=== PATIENT | male | born 1975 | race Caucasian/White ===

== ENCOUNTER 2022-05-04 06:35 | Emergency (ER) | payer SELFPAY ==
--- NOTE | ~2022-05-04 | XR_ITS ---
XR hand LT 2V DATE: 05/04/2022 07:14 INDICATION: Animal bite TECHNIQUE: AP and lateral views COMPARISON: None FINDINGS: There is subcutaneous emphysema of the mid and ulnar aspects of the dorsum of the hand and ulnar aspect of the wrist. Best demonstrated on the lateral view are at least several small apparent bone fracture fragments, li ambrocio from the base of the fifth metacarpal bone or distal hamate. CT examination would be more defini tive. No other fracture or dislocation is evident. No periosteal reaction or bone destruction is noted. IMPRESSION: Prominent subcutaneous emphysema of the wrist and hand Small fracture fragments are detected at the medial carpal-metacarpal area; CT would be helpful for m ore definitive evaluation of the fractures if clinically appropriate Reviewed, dictated and finalized at location A. [facility] IMPRESSION: Prominent subcutaneous emphysema of the wrist and hand Small fracture fragments are detected at the medial carpal-metacarpal area; CT would be helpful for more definitive evaluation of the fractures if clinically appropriate
[2022-05-04 06:42] VITALS: BP 175/113; PULSE 67; RESP 20; TEMP 36.1; O2SAT 99
[2022-05-04] MEDS: fentaNYL CITRATE INJ (*CRX) 100 MCG/2 ML VIAL 50 MCG IM (07:18)
[2022-05-04] MEDS: LIDO 1%/EPINEPHRINE 1:100,000 20 ML VIAL INFILTRATE (07:19)
--- NOTE | 2022-05-04 08:00 | ED.ANIMALBIT ---
HPI - Animal Bite General Chief Complaint: Animal Bite Stated Complaint: Hand Injury Time Seen by Provider: 05/04/22 07:24 History of Present Illness HPI narrative: Pt was getting to his truck early this morning in the dark and heard growl and was attacked by stray animal. Pt not sure what it was because he couldn't see it in the dark. Pt says it latched onto his hand and he had a hard time getting it to let go. Pt has not had a recent tetanus shot. Pt does not have a PCP are does not routinely see doctors. Pt sustained wounds to left hand. Related Data Allergies Allergy/AdvReac Type Severity Reaction Status Date / Time NALDACON Allergy Mild Unknown Uncoded 05/04/22 06:49 Review of Systems Review of Systems: All systems reviewed & are unremarkable except as noted in HPI and below Exam Const: General: healthy appearing Nutritional Appearance: well nourished Orientation/consciousness: patient oriented x3 Limitations: no limitations Resp: Effort & Inspection: normal respiratory effort Cardio: Rate: regular rate Rhythm: regular rhythm GI: GI Palp: Yes Soft to palpation Skin: General skin exam: normal color Wounds: wounds noted Neuro: General: patient oriented x3, moves all extremities, no meningeal signs and no focal motor deficits Extrem: Other: large gaping 5 cm laceration to proximal dorsal wrist, several small puncure wounds to palm and a few to dorsum of hand. able to flex and extend fingers and wrist, moderate swelling to hand noted Psych: Mental Status: mental status grossly normal Affect: normal affect Attitude: cooperative Course Vital Signs Vital signs: Vital Signs Temperature 97 F L 05/04/22 06:42 Pulse Rate 05/04/22 06:42 Respiratory Rate 20 05/04/22 06:42 Blood Pressure 175/113 H 05/04/22 06:42 Pulse Oximetry 99 05/04/22 06:42 Oxygen Delivery Room Air 05/04/22 06:42 Temperature 97 F L 05/04/22 06:42 Pulse Rate 67 05/04/22 06:42 Respiratory Rate 20 05/04/22 06:42 Blood Pressure 175/113 H 05/04/22 06:42 Pulse Oximetry 99 05/04/22 06:42 Oxygen Delivery Room Air 05/04/22 06:42 Procedures Laceration Laceration 1: Date: 05/04/22 Site: hand Side (If applicable): left Size (cm): 5 Description: linear Depth: simple, single layer Local Anesthetic: lidocaine 1% and with epi Amount of anesthesia used (mL): 6 Pre-repair: wound explored, irrigated, deep structures intact and other (wound explored no tendon injury or FB noted, looselu approximated) ====== Skin Level ====== Skin layer closed with: nylon Size (cm): 4-0 Number of sutures: 4 Technique: simple, interrupted ====== Subcutaneous Layer ====== ====== Muscle Layer ====== ====== Tendon Layer ====== MDM - Animal Bite MDM Narrative Medical decision making narrative: x rays showed small fracture fragments. large wound closed loosely. dixussed with Dr Iglesias, recommended IV Unasyn and will see in follow up. Discussed with pharmacy regarding rabies prophylaxis. recommended prophyklaxix, will give IM IG here and vaccine and then prescribe days 3,7 and 14 outpatient Discussed need for close follow up and risk for infection. Pt understands. Pt needs to get to work. Differential Diagnosis Differential diagnosis: Likely bite by animal and rabies contact Discharge Plan Discharge Clinical Impression: Bite by animal Patient Disposition: Home, Self-Care Condition: Improved Instructions: Antibiotic Form, Animal Bite (ED), Laceration (ED) Additional Instructions: return to outpatient for rabies vaccine shots day 3, 7 and 14 Prescriptions: New amoxicillin-pot clavulanate 875-125 mg tablet 1 tablet PO Q12H Qty: 20 0RF Follow-up/Referrals: Jimmie Iglesias MD [Physician] - UNKNOWN,DOCTOR [Primary Care Provider] -
[2022-05-04] MEDS: TETANUS,DIPHTHERIA,AC PERTUSSIS ADULT 0.5 ML (ADACEL) IM (08:03)
[2022-05-04] MEDS: AMPICILLIN SULB 3 GM/NS 100 ML 3 GM/100 ML VIAL IVPB (08:06)
[2022-05-04] MEDS: ONDANSETRON INJ 4 MG/2 ML VIAL IV PUSH (08:46)
[2022-05-04] MEDS: fentaNYL CITRATE INJ (*CRX) 100 MCG/2 ML VIAL 50 MCG IV PUSH (08:46)
[2022-05-04] MEDS: RABIES IMMUNE GLOBULIN/PF 1,500 UNITS/5 ML VIAL 2400 UNITS IM (08:55)
[2022-05-04] MEDS: RABIES VACCINE (RABAVERT) 2.5 UNITS VIAL IM (09:04)
[2022-05-04 09:20] VITALS: BP 153/119; PULSE 65; RESP 18; TEMP 36.2; O2SAT 96
--- NOTE | 2022-05-05 10:35 | PC.NURSE ---
DURING CALL BACK TO CHECK PT STATUS TODAY, HE REPORTS HE IS WORKING AND THAT HE IS HAVING DIFFICULTY TAKING HIS ABT, STATING THEY MAKE HIM NAUSEATED AND DIZZY AND HE IS ALSO HAVING DISCHARGE AND ODOR FROM HIS WOUND. PT REPORTS HE HAS NOT FOLLOWED UP WITH DR DIEZ OF YET. PER DR BOWERS, HE ADVISES PT FOLLOW UP WITH DR DIEZ OR RETURN TO ER OR URGENT CARE FOR WOUND CHECK, POSSIBLE MEDICATION CHANGE. PT IS ADVISED AND VERBALIZED UNDERSTANDING OF INSTRUCTIONS AND THE URGENCY FOR FOLLOW UP TO PREVENT ANY OSTEOMYELITIS OR FURTHER DETERIORATION OF SX.
== END 2022-05-04 09:26 | disposition home or self-care (01) ==
PROVIDERS: Emergency Provider Emergency Medicine
DX: S61.452A Open bite of left hand, initial encounter (principal); Z23 Encounter for immunization; W64.XXXA Exposure to other animate mechanical forces, initial encounter
CPT/HCPCS: 12002; 73120; 90471; 90472; 90675; 90715; 96365; 96372; 96375; 99284; 90375; A4565; J0295; J2405; J3010

== ENCOUNTER 2022-05-07 17:55 | Emergency (ER) | payer SELFPAY ==
[2022-05-07 17:57] VITALS: BP 160/103; PULSE 84; RESP 18; TEMP 37.1; O2SAT 99
--- NOTE | 2022-05-07 18:16 | ED.WOUNDLAC ---
HPI - Wound/Laceration General Chief Complaint: Wound/Laceration Stated Complaint: animal bite/infection Time Seen by Provider: 05/07/22 18:16 History of Present Illness HPI narrative: 46-year-old male patient with a stray animal bite sustained on 05/04/2022, seen here in the ER with a workup done and sutures to the laceration and an advice to follow-up with the hand surgeon Dr. Iglesias at [facility] is here for wound recheck today. He has been on Augmentin 875 twice a day and was started on rabies series. The patient is here primarily to have the 2nd short of rabies however he also is concerned about the swelling of the hand and losing of 1 of the wounds. He denies any fever or chills. He denies any worsening of pain in the hand however he has noticed that the swelling is persistent in the dorsum of the hand. He also states that he has called the head surgeon but has not heard from them yet. Patient has continued to work and he states that he does put the hand intermittently in the hand sling. Related Data Allergies Allergy/AdvReac Type Severity Reaction Status Date / Time NALDACON Allergy Mild Unknown Uncoded 05/04/22 06:49 Review of Systems Review of Systems: All systems reviewed & are unremarkable except as noted in HPI and below Exam Narrative: Patient is alert and appears in no acute distress. He is afebrile. Vital signs are stable with exception of blood pressure being elevated at 1 60/103. The patient is afebrile . Left hand on examination shows swelling over the dorsum of the hand with a small abrasion over the 3rd MCP with minimal drainage. There is also a suture line proximal to the abrasion with all but 1 sutures intact. There is no redness in that area. There is minimal redness to the dorsum of the hand. Patient is able to flex and extend his digits without much discomfort. He is also able to spread his fingers and close them as well. There is no drainage noted on the palmar aspect. The range of motion at the wrist joint is normal. The rest of the physical examination is unremarkable at this time. Course Course Emergency Course: Patient has been given another dose of cefazolin 2 g here and he is advised to continue his Augmentin. Second short of rabies is also been given today in the ER and day 7 and 14 rabies shots have been ordered as an outpatient. The patient has been encouraged to call the hand surgeon and follow-up with him as soon as possible. He is also advised to return here or go to [place] [facility] should there be any worsening of his symptoms. Vital Signs Vital signs: Vital Signs Temperature 37.1 C 05/07/22 17:57 Pulse Rate 84 05/07/22 17:57 Respiratory Rate 18 05/07/22 17:57 Blood Pressure 160/103 H 05/07/22 17:57 Pulse Oximetry 99 05/07/22 17:57 Oxygen Delivery Room Air 05/07/22 17:57 Temperature 36.7 C 05/07/22 19:37 Pulse Rate 78 05/07/22 19:37 Respiratory Rate 20 05/07/22 19:37 Blood Pressure 131/81 05/07/22 19:37 Pulse Oximetry 99 05/07/22 19:37 Oxygen Delivery Room Air 05/07/22 19:37 Discharge Plan Discharge Clinical Impression: Encounter for wound re-check Patient Disposition: Home, Self-Care Condition: Stable Instructions: Antibiotic Form Additional Instructions: Elevate the hand and rest it Continue antibiotics as before Nausea medication as prescribed Must follow up with Dr Iglesias, the hand surgeon early next week or sooner should there be any worsening of the swelling or pain Prescriptions: New ondansetron 4 mg tablet,disintegrating 4 mg PO Q6H PRN (Reason: nausea and vomiting) Qty: 10 0RF No Action amoxicillin-pot clavulanate 875-125 mg tablet 1 tablet PO Q12H Qty: 20 0RF Follow-up/Referrals: UNKNOWN,DOCTOR [Primary Care Provider] -
[2022-05-07] MEDS: RABIES VACCINE (RABAVERT) 2.5 UNITS VIAL IM (18:38)
[2022-05-07] MEDS: ceFAZolin 2 GM/D5W 50 ML 2 GM/50 ML BAG IVPB (18:48)
[2022-05-07 18:54] VITALS: BP 130/99
--- NOTE | 2022-05-07 18:55 | PC.NURSE ---
REPORT TO CANDELARIO BELTRAN. NO QUESTIONS OR CONCERNS
[2022-05-07 19:37] VITALS: BP 131/81; PULSE 78; RESP 20; TEMP 36.7; O2SAT 99
== END 2022-05-07 19:40 | disposition home or self-care (01) ==
PROVIDERS: Emergency Provider Emergency Medicine
DX: S61.452D Open bite of left hand, subsequent encounter (principal); Z23 Encounter for immunization; W64.XXXD Exposure to other animate mechanical forces, subsequent encounter
CPT/HCPCS: 90471; 90675; 96365; 99284; J0295; J0690

== ENCOUNTER 2022-05-12 09:10 | Outpatient (CLI) | payer SELFPAY ==
[2022-05-12] MEDS: RABIES VACCINE (RABAVERT) 2.5 UNITS VIAL IM (16:25)
--- NOTE | 2022-05-12 16:29 | PC.NURSE ---
Patient arrived at nurses station for rabies vaccine. Vaccine administered into the right deltoid. Wound check completed. Area to left hand puffy with scabbed wound areas. Area rewrapped. Patient denies pain. Ambulated to car with significant other.
== END 2022-05-12 09:11 | disposition home or self-care (01) ==
PROVIDERS: PCP Emergency Medicine; Visit Provider Emergency Medicine
DX: Z23 Encounter for immunization (principal)
CPT/HCPCS: 90471; 90675